=== PATIENT | male | born 1995 | race Caucasian/White ===

== ENCOUNTER 2018-04-24 20:30 | Emergency (ER) | payer BC ==
[2018-04-24 21:05] VITALS: BP 133/78
--- NOTE | 2018-04-24 21:37 | UC ---
Complaint Male HPI - HPI Summary HPI Summary: Pt c/o dysuria, frequency, urgency X 2 weeks. - History of Current Complaint Chief Complaint: [facility]CGU Stated Complaint: URINARY COMPLAINT Time Seen by Provider: 04/24/18 21:18 Hx Obtained From: Patient Onset/Duration: Sudden Onset, Lasting Weeks, Still Present Severity Initially: Mild Severity Currently: Mild Pain Intensity: 0 Location: Penis Character: Sharp, Burning Alleviating Factor(s): Meds - Azo Associated Signs And Symptoms: Positive: Dysuria - Risk Factors Testicular Torsion: Negative - Allergies/Home Medications Allergies/Adverse Reactions: Allergies Allergy/AdvReac Type Severity Reaction Status Date / Time No Known Allergies Allergy Verified 04/24/18 20:58 Home Medications: Home Medications Phenazopyridine HCl [Urinary Pain Relief] 95 mg PO ONCE 04/24/18 [History Confirmed 04/24/18] PMH/Surg Hx/FS Hx/Imm Hx Previously Healthy: Yes - Surgical History Surgical History: None - Family History Known Family History: Positive: Cardiac Disease - Social History Occupation: Employed Full-time Lives: With Family Alcohol Use: Rare Substance Use Type: None Smoking Status (MU): Never Smoked Tobacco Have You Smoked in the Last Year: No Review of Systems Constitutional: Negative Skin: Negative Eyes: Negative ENT: Negative Respiratory: Negative Cardiovascular: Negative Gastrointestinal: Negative Genitourinary: Dysuria, Frequency, Urgency Motor: Negative Neurovascular: Negative Musculoskeletal: Negative Neurological: Negative Psychological: Negative Is Patient Immunocompromised?: No All Other Systems Reviewed And Are Negative: Yes Physical Exam Triage Information Reviewed: Yes Appearance: Well-Appearing Vital Signs: Initial Vital Signs Temp 97.6 F 04/24/18 20:59 Pulse 59 04/24/18 20:59 Resp 12 04/24/18 20:59 BP 133/78 04/24/18 20:59 Pulse Ox 97 04/24/18 20:59 Vital Signs Reviewed: Yes Eye Exam: Normal ENT Exam: Normal Dental Exam: Normal Neck exam: Normal Respiratory Exam: Normal Cardiovascular Exam: Normal Abdominal Exam: Normal Abdomen Description: Positive: Nontender Musculoskeletal Exam: Normal Neurological Exam: Normal Psychological Exam: Normal Skin Exam: Normal Complaint Male Course/Dx - Course Course Of Treatment: Pt took AZO prior to clinic visit. Pt denies risk of STD exposure - Differential Dx/Diagnosis Differential Diagnosis/HQI/PQRI: Urinary Tract Infection Provider Diagnoses: dysuria Discharge - Sign-Out/Discharge Documenting (check all that apply): Patient Departure All imaging exams completed and their final reports reviewed: No Studies - Discharge Plan Condition: Stable Disposition: HOME Prescriptions: Sulfamethox/Trimethoprim DS* [Bactrim DS 800/160 TAB*] 1 tab PO Q12H #14 tab Patient Education Materials: Dysuria (ED) Referrals: Ana Carlos MD [Primary Care Provider] - If Needed - Billing Disposition and Condition Condition: STABLE Disposition: Home
[2018-04-24] MEDS ORDERED: Sulfamethox/Trimethoprim DS 800/160* TAB PO ONE (21:38)
== END 2018-04-24 21:48 | disposition home or self-care (01) ==
LOC: UCCORT 20:30
DX: R30.0 Dysuria (principal)
CPT/HCPCS: 87086; 87491; 87591; 99202; A9270-GY; G0463